=== PATIENT | female | born 1935 | race African-American/Black ===

== ENCOUNTER → 2017-02-16 | Outpatient (CLI) | payer MEDICARE, MEDICAID ==
[~2017-02-16] MED LIST: ASPI-1035 PO; EZET10TA PO; LEVO100T9 PO; OLME20TA14 PO; RIVA10TA PO; TRIA1CAP6 PO; iron
== END | disposition home or self-care (01) ==
LOC: US 11:10
PROVIDERS: ATTEND Specialist
DX: N18.9 Chronic kidney disease, unspecified (principal); N28.1 Cyst of kidney, acquired
CPT/HCPCS: 76770